=== PATIENT | female | born 1970 | race Caucasian/White ===

== ENCOUNTER 2017-05-07 15:22 | Emergency (ER) | payer SELFPAY ==
[~2017-05-07] VITALS: Ht 170.2 cm; Wt 64.0 kg
[2017-05-07 15:58] VITALS: BP 112/77; PULSE 66; RESP 18; TEMP 97.3; O2SAT 99
[2017-05-07] MEDS ORDERED: CELE10TA PO ×2 (16:10)
[2017-05-07] MEDS ORDERED: BUSP10TA PO ×2 (16:10)
--- NOTE | 2017-05-07 16:30 | PD ---
HPI Chief Complaint: Fall Time Seen by Provider: 16:10 Travel History International Travel<30 days: No Contact w/Intl Traveler<30days: No Traveled to known affect area: No History of Present Illness HPI 46 y female presents to the emergency department complaining of headache, neck, right wrist pain, and feeling tired after a fall that occurred Friday. States that she fell landing on her right hand and nearly impaling the right eye. She also hit her head. States her headache is a 6 out of 10 pain located in the right frontal and occipital region of her head. Neck pain is exacerbated with movement and palpation. She has FROM of neck with tenderness. Her right wrist is tender to touch but retains full range of motion and sensation. States that she went to work this week however she woke up this morning feeling very tired and is having trouble concentrating. Denies blurred vision, visual changes, LOC , fever, chills, numbness and tingling of the extremities, back pain. PFSH Past Medical History Diminished Hearing: No Tetanus Vaccination: Unknown Influenza Vaccination: No ?: Not Social History Alcohol Use: No Tobacco Use: No Substance Use: No Allergies-Medications (Allergen,Severity, Reaction): Coded Allergies: codeine (Verified Allergy, Intermediate, GI UPSET, 05/07/17) Reported Meds & Prescriptions Reported Meds & Active Scripts Active Robaxin (Methocarbamol) 500 Mg Tab 500 Mg PO TID 3 Days Ibuprofen 800 Mg Tab 800 Mg PO TID 5 Days Reported Celexa (Citalopram Hydrobromide) 10 Mg Tab 10 Mg PO DAILY Buspirone (Buspirone HCl) 10 Mg Tab 10 Mg PO DAILY Review of Systems Except as stated in HPI: all other systems reviewed are Neg Physical Exam Narrative GENERAL: Well-developed well-nourished SKIN: Focused skin assessment warm/dry. HEAD: Normocephalic. ecchymosis over right right eyelid with associated TTP of the orbit EYES: Pupils equal and round. No scleral icterus. No injection or drainage. EOMI ENT: No nasal bleeding or discharge. Mucous membranes pink and moist. NECK: Trachea midline. No JVD. Mild midline TTP with TTP of paraspinous muscles. Muscle spasms base of occiput extending to the upper shoulders CARDIOVASCULAR: Regular rate and rhythm. No murmur appreciated. RESPIRATORY: No accessory muscle use. Clear to auscultation. Breath sounds equal bilaterally. GASTROINTESTINAL: Abdomen soft, non-tender, nondistended. Hepatic and splenic margins not palpable. MUSCULOSKELETAL: No obvious deformities. No clubbing. No cyanosis. No edema. TTP palpation of the wrist without crepitus, edema or ecchymosis. BACK: No CVA tenderness. No rash. No point tenderness on palpation of the spine. NEUROLOGICAL: Awake and alert. No obvious cranial nerve deficits. Motor grossly within normal limits. Normal speech. Neurovascular intact PSYCHIATRIC: Appropriate mood and affect; insight and judgment normal. Data Data Last Documented VS Vital Signs Date Time Temp Pulse Resp B/P (MAP) Pulse Ox O2 Delivery O2 Flow Rate FiO2 05/07/17 15:58 97.3 66 18 112/77 (89) [address] Cerv Spine W/O Contrast (05/07/17 ) Ct Facial Bones W/O Iv Cont (05/07/17 ) Ct Brain W/O Iv Contrast(Rout) (05/07/17 ) Wrist, Limited (Ap&Lat) (05/07/17 ) Ketorolac Inj (Toradol Inj) (05/07/17 16:45) Ed Discharge Order (05/07/17 17:59) MDM Medical Decision Making Medical Screen Exam Complete: Yes Emergency Medical Condition: Yes Differential Diagnosis Right wrist fracture versus contusion versus sprain Next sprain versus strain versus fracture Right eye contusion versus fracture versus cellulitis Narrative Course 46 year female presents to emergency department status post fall that occurred Friday. Since that she has been working for the past 2 days but yesterday and today has developed increased fatigue, headache, neck pain, and wrist pain. Denies blurred vision, visual changes, LOC, fever, chills, numbness and tingling of the extremities, back pain. States this feel like she was 'in an motor vehicle accident'. States that she is normally healthy and does not take medications regularly. Head and facial bones- without acute process Neck- Small central disc protrusion at C3-4 with a minimal grade 1 anterolisthesis of 3 on 4. Mild DDD. Wrist- No acute process Pt likely has a whiplash injury secondary to a fall. I advised pt to continue wrapping her wrist for comfort. Muscle relaxers and motrin for pain. Advised pt to follow up with PCP for further treatment and evaluation. Diagnosis Primary Impression: Wrist contusion Qualified Codes: S60.211A - Contusion of right wrist, initial encounter Additional Impression: Whiplash injury Qualified Codes: S13.4XXA - Sprain of ligaments of cervical spine, initial encounter Referrals: Primary Care Physician Additional Instructions: May use ice and/or heat for symptom relief. May continue to use Wyatt wrap for the rest. Scripts Methocarbamol (Robaxin) 500 Mg Tab 500 MG PO TID for Muscle Spasm for 3 Days, TAB 0 Refills Prov: Nate Epps MD 05/07/17 Ibuprofen (Ibuprofen) 800 Mg Tab 800 MG PO TID for Arthritis Pain for 5 Days, TAB 0 Refills Prov: Nate Epps MD 05/07/17 Disposition: 01 DISCHARGE HOME Condition: Stable Flores Briceno May 07, 2017 16:30
[2017-05-07] MEDS ORDERED: KETOROLAC TROMETHAMINE 60 MG/2 ML (IM) VIAL IM ONE ×2 (16:45)
--- NOTE | 2017-05-07 17:13 | RADRPT ---
EXAM DATE/TIME: 05/07/2017 16:41 [facility] COMPARISON: No previous studies available for comparison. INDICATIONS : Right wrist pain post fall. MEDICAL HISTORY : None. SURGICAL HISTORY : None. ENCOUNTER: Initial ACUITY: 1 day PAIN SCORE: 5/10 LOCATION: Right wrist. FINDINGS: Two view examination of the right wrist demonstrates no soft tissue swelling, dislocation, or fractur e. The joint spaces are maintained. Bony mineralization is normal. CONCLUSION: No acute osseous injury. Jonny Beard MD on May 07, 2017 at 17:11 Board Certified Radiologist. This report was verified electronically.
[2017-05-07] MEDS ORDERED: IBUP800T23 PO ×2 (17:23)
--- NOTE | 2017-05-07 17:34 | RADRPT ---
EXAM DATE/TIME: 05/07/2017 16:52 [facility] COMPARISON: CT BRAIN W/O CONTRAST, May 07, 2017, 16:52. INDICATIONS : Fall. Pain. RADIATION DOSE: 25.45 CTDIvol (mGy) MEDICAL HISTORY : None SURGICAL HISTORY : None. ENCOUNTER: Initial ACUITY: 4 - 6 days PAIN SCORE: 5/10 LOCATION: facial TECHNIQUE: Volumetric scanning of the facial bones was performed. Using automated exposure control and adjustme nt of the mA and/or kV according to patient size, radiation dose was kept as low as reasonably achiev able to obtain optimal diagnostic quality images. DICOM format image data is available [employer] y for review and comparison. FINDINGS: ORBITS: The orbital and infraorbital osseous structures are intact. The retroconal structures have a normal configuration. No radiopaque foreign bodies are seen. NASAL BONE: The nasal bone and maxillary spine are intact ZYGOMATIC ARCHES: Symmetric without evidence of fracture. SINUSES: The maxillary, ethmoid and frontal sinuses are intact. No air-fluid levels seen. NASAL CAVITY: The nasal septum is minimally deviated towards right. The lacrimal ducts are intact. SOFT TISSUES: No radiopaque foreign bodies seen. No soft-tissue swelling is seen. CRIBIFORM PLATE: Grossly intact. CONCLUSION: No facial bone fracture seen. Eh Welch MD on May 07, 2017 at 17:30 Board Certified Radiologist. This report was verified electronically.
--- NOTE | 2017-05-07 17:38 | RADRPT ---
EXAM DATE/TIME: 05/07/2017 16:52 [facility] COMPARISON: No previous studies available for comparison. INDICATIONS : Fall. Pain. RADIATION DOSE: 58.25 CTDIvol (mGy) MEDICAL HISTORY : None SURGICAL HISTORY : None. ENCOUNTER: Initial ACUITY: 4 - 6 days PAIN SCALE: 5/10 LOCATION: cranial TECHNIQUE: Multiple contiguous axial images were obtained of the head. Using automated exposure control and adj ustment of the mA and/or kV according to patient size, radiation dose was kept as low as reasonably a chievable to obtain optimal diagnostic quality images. DICOM format image data is available electro nically for review and comparison. FINDINGS: CEREBRUM: The ventricles are normal for age. No evidence of midline shift, mass lesion, hemorrhage or acute in farction. No extra-axial fluid collections are seen. POSTERIOR FOSSA: The cerebellum and brainstem are intact. The 4th ventricle is midline. The cerebellopontine angle i s unremarkable. EXTRACRANIAL: The visualized portion of the orbits is intact. SKULL: The calvaria is intact. No evidence of skull fracture. CONCLUSION: Negative exam. Jonny Beard MD on May 07, 2017 at 17:36 Board Certified Radiologist. This report was verified electronically.
--- NOTE | 2017-05-07 17:43 | RADRPT ---
EXAM DATE/TIME: 05/07/2017 16:52 [facility] COMPARISON: No previous studies available for comparison. INDICATIONS : Fall. Pain. RADIATION DOSE: 22.47 CTDIvol (mGy) MEDICAL HISTORY : None SURGICAL HISTORY : None. ENCOUNTER: Initial ACUITY: 4 - 6 days PAIN SCALE: 5/10 LOCATION: Bilateral neck TECHNIQUE: Volumetric scanning of the cervical spine was performed. Multiplanar reconstructions in the sagittal, coronal and oblique axial planes were performed. Using automated exposure control and adjustment o f the mA and/or kV according to patient size, radiation dose was kept as low as reasonably achievable to obtain optimal diagnostic quality images. DICOM format image data is available electronically f or review and comparison. FINDINGS: Sagittal and coronal reconstructions show degenerative disc disease predominately at C5-6 with some l oss of disc height and uncovertebral ridging. Minimal grade 1 anterolisthesis of C3 on 4 with a small central disc protrusion. Spinal canal remains widely patent. No fracture. C2-C3: The bony spinal canal is normal in size. No evidence of disc bulge or herniation. The neural forami na are bilaterally patent. C3-C4: Very small central disc protrusion. Spinal canal and neural foramina are patent. C4-C5: The bony spinal canal is normal in size. No evidence of disc bulge or herniation. The neural forami na are bilaterally patent. C5-C6: Uncovertebral ridging directed anteriorly. Spinal canal and neural foramina are patent. C6-C7: The bony spinal canal is normal in size. No evidence of disc bulge or herniation. The neural forami na are bilaterally patent. C7-T1: The bony spinal canal is normal in size. No evidence of disc bulge or herniation. The neural forami na are bilaterally patent. CONCLUSION: 1. Very minimal degenerative disc disease with some loss of height in the vertebral ridging at C5-6. 2. Small central disc protrusion at C3-4 with a minimal grade 1 anterolisthesis of 3 on 4. 3. Otherwise, spinal canal and neural foramina are patent throughout without cord or nerve root compr omise. No fracture. Jonny Beard MD on May 07, 2017 at 17:36 Board Certified Radiologist. This report was verified electronically.
[2017-05-07] MEDS ORDERED: ROBA500T PO ×2 (17:56)
== END 2017-05-07 18:06 | disposition home or self-care (01) ==
LOC: PHEFT 15:22
DX: S60.211A Contusion of right wrist, initial encounter (principal); S13.4XXA Sprain of ligaments of cervical spine, initial encounter; R51 Headache; M54.2 Cervicalgia; W19.XXXA Unspecified fall, initial encounter
CPT/HCPCS: 70450; 70486; 72125; 73100; 96372; 99285; J1885